=== PATIENT | male | born 1965 | race Caucasian/White ===

== ENCOUNTER 2018-02-09 07:20 | Outpatient (CLI) | payer OTHER ==
[~2018-02-09 07:20] MED LIST: SYNTHROID100 MCG; SYNTHROID200 MCG; SYNTHROID200 MCG PO; SYNTHROID50 MCG; SYNTHROID50 MCG PO; VOLTAREM 50 MG PO
== END 2018-02-09 10:39 | disposition home or self-care (01) ==
LOC: LAB 07:20
DX: E03.8 Other specified hypothyroidism (principal); Z12.11 Encounter for screening for malignant neoplasm of colon